=== PATIENT | female | born 1970 | race Caucasian/White ===

== ENCOUNTER 2018-05-31 15:04 | Inpatient (IN) ==
[2018-06-01] MEDS: Ibuprofen 600 MG Tablet PO PRN ×2 (09:14→13:56)
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
[2018-06-01] MEDS: Citalopram 20 MG Tablet PO SCH (13:55)
[2018-06-01] MEDS: traZODone 50 MG Tablet PO SCH (21:16)
[2018-06-02] MEDS: Citalopram 20 MG Tablet PO SCH (08:39)
[2018-06-02] MEDS: Ibuprofen 600 MG Tablet PO PRN ×3 (09:09→20:40)
--- NOTE | 2018-06-02 10:51 | P.CONPSY ---
Provisional Diagnosis Admission Date: May 31, 2018 18:09 [place] I.: 1. Adjustment disorder with depressed mood 2. Polysubstance abuse including opiates and alcohol [place] II.: Deferred History of Present Illness Service: Psychiatry Consult date: 06/02/18 Requesting Physician: Gaurav Jackson Reason for Consult: Second opinion for involuntary psychiatric hospitalization Primary Care Provider: UNKNOWN History of Present Illness: From Dr. Jackson's H&P: Patient is a 47-year-old white female comes here under Dykes act signed by the [facility]'s office dated 05/31/2019 at 1830 p.m. that document reviewed essentially states patient reports active SI without a plan states she recently became homeless and is severely depressed. Patient was initially seen screen at [facility]. Toxicology they are positive for marijuana. Patient transported here after being medically cleared at that facility patient seen on 2600 unit with nurse Lay. Patient is somewhat disheveled thin and slender female with a strong [place] accident. She is labile tearful anxious and somewhat entitled and demanding. Giving a somewhat convoluted history of being done here about 3 years from the [facility] appears his casts of their leading to her losing custody of her 2 late teens young adult children ostracizing herself from the rest of her family. Also being from her for a number of years. She came down here it appears she is at multiple unstable relationships and living situations with various men and women some of them met through her work some of them met through [employer]. Most recently patient in February went to the [facility] looking for somebody to help pay her rent and help with her she can get back into employment. This did not occur she was kicked out of that house wound up depressed was Dykes acted to a facility in [place] was there for 9 days. Discharged on Celexa trazodone and Vistaril. Somehow she made her way back here to the [facility] has been significantly homeless since then. She acknowledges frequent use of marijuana as much as she can afford. She acknowledges past use of multiple drugs including intravenous drug use related more to the relationship with her and children. She is vague about prior psychiatric hospitalizations. She denies voices or visions. But does acknowledge suicidal ideation hopelessness and helplessness. She has no income and she does not know what to do or where to go. It appears she has been to the [facility]. At this time patient does not meet criteria for further inpatient psychiatric stabilization by food she does meet Dykes criteria thus I will do first opinion request second opinion by food she does have capacity. We will restart her on her Celexa 20 mg daily trazodone 50 mg at bedtime we will use Atarax as a as needed. We will have counselor's talk with her related to possible placement issues. Patient says she has no options to return to [facility] to be closer to her family. On my examination today, 06/02: Patient seen and examined with nurse. Chart reviewed. Case discussed with nursing staff. I have explained the purpose of my evaluation today to the patient. On my examination today, the patient presents as tearful and dysphoric. She ruminates on her homeless living situation. She says that she has been feeling depressed for several months. She endorses suicidal ideation with plan to overdose on pills. She complains of mood instability and says that she is "scared of everything." She also reports anxiety, particularly when called upon to interact socially, such as when she has to make a phone call. She denies audiovisual hallucinations. I can elicit no delusional material. She does complain of a history of mood instability, but no clear manic or hypomanic episodes reported. Remainder of the psychiatric ROS is negative. No acute physical complaints. Past psychiatric history: The patient reports a history of depression and anxiety. She is not presently under the care of a psychiatrist. She says that she was Dykes acted in February of this year and may have been psychiatrically hospitalized in 2014. She does say that she has endeavored to harm herself in the past by a "doing drugs and drinking." Family history: The patient notes that her paternal grandmother was institutionalized at a psychiatric facility. No other reported family psychiatric history. Chemical dependency history: The patient admits to abuse of opiates and alcohol. She drinks about a 6 pack of beer a day. She denies any history of DTs or seizures. Social history: The patient reports that she has been homeless since December of this year. She is after 21 years of marriage. She has 2 children. She has a grade 9 education. She has previously worked at multiple jobs, most recently at a [employer]. Review of Systems All other systems reviewed negative except as stated in HPI [facility] - History History Provided By: Patient - Tobacco History Second Hand Smoke Exposure: Yes Tobacco Use In Past 30 Days: Yes Smoking Status: Current every day smoker Tobacco Type: Cigarettes - Alcohol History How Often Do You Have a Drink Containing Alcohol: Monthly or less - Substance Use History Substance History: Past History - Substance Use Type Alcohol Status: Active Route Used: By Mouth Frequency: Daily as much as she has Reason for Use: Calm Down, Feels Good Comment: Patient does not see substance use as a problem - Travel History Recent Travel in the USA Within the Last 8 Weeks: No Recent Travel Out of the Country Within the Last 8 Weeks: No Medications and Allergies Active Medications: Active Medications Al Hydrox/Mg Hydrox/Simethicone (Mag-Al Plus Susp Liq) 30 ml PO Q6H PRN PRN Reason: DYSPEPSIA Al Hydroxide/Mg Hydroxide (Milk Of Magnesia Liq) 30 ml PO DAILY PRN PRN Reason: CONSTIPATION Last Admin: 06/02/18 09:09 Dose: 30 ml Al Hydroxide/Mg Hydroxide (Milk Of Magnesia Liq) 30 ml PO Q12H PRN PRN Reason: Mild Constipation Citalopram Hydrobromide (Celexa) 20 mg PO DAILY [facility] Last Admin: 06/02/18 08:39 Dose: 20 mg Diphenhydramine HCl (Benadryl) 50 mg PO HS PRN PRN Reason: INSOMNIA Hydroxyzine HCl (Atarax) 50 mg PO Q6H PRN PRN Reason: ANXIETY Last Admin: 06/02/18 09:09 Dose: 50 mg Ibuprofen (Motrin) 600 mg PO Q6H PRN PRN Reason: PAIN SCALE 4-6 Last Admin: 06/02/18 09:09 Dose: 600 mg Nicotine (Habitrol 21 Mg Patch.24 Hr) 1 patch T-DERMAL DAILY [facility] Last Admin: 06/02/18 08:39 Dose: 1 patch Patch Removal (Remove Old Patch) 1 each T-DERMAL HS [facility] Last Admin: 06/01/18 21:14 Dose: 1 each Trazodone HCl (Desyrel) 50 mg PO HS [facility] Last Admin: 06/01/18 21:16 Dose: 50 mg Allergies Allergy/AdvReac Type Severity Reaction Status Date / Time codeine Allergy Unknown Constipatio Verified 05/31/18 21:31 n Exam Vital signs: Vital Signs 06/01/18 17:10 06/02/18 06:00 Temperature 98.5 F 97.8 F Pulse Rate 73 81 Respiratory Rate 18 16 Blood Pressure 153/85 H 124/87 Pulse Oximetry 99 Intake & Output 06/01/18 06/02/18 06/02/18 18:59 06:59 18:59 Intake Total 360 / 360 240 / 240 Balance 360 / 360 240 / 240 Intake: Oral 360 / 360 240 / 240 Other: Date of Last Bowel Movement 05/30/18 Narrative: Physical examination was completed by provider at outside hospital. On my examination today, the patient appears to be in no acute physical distress. No motor abnormalities noted. No signs of withdrawal noted. Mental Status Examination Appearance: Disheveled Consciousness: Alert Orientation: x4 Motor Activity: Normal gait Speech: Unremarkable Language: Adequate Fund of Knowledge: Adequate Attention and Concentration: Adequate Memory: Unremarkable (Grossly intact on clinical exam) Mood: Other (Depressed) Affect: Other (Tearful and dysphoric) Thought Process & Associations: Intact Thought Content: Appropriate Hallucination Type: None Delusion Type: None Suicidal Ideation: Yes Suicidal Plan: Yes Suicidal Intention: No (No reported urge to hurt self on inpatient unit) Homicidal Ideation: No Homicidal Plan: No Homicidal Intention: No Insight: Poor Judgment: Poor Assessment and Plan - Assessment (1) Adjustment disorder with depressed mood Code(s): F43.21 - Adjustment disorder with depressed mood Status: Acute (2) Polysubstance abuse Code(s): F19.10 - Other psychoactive substance abuse, uncomplicated Status: Acute - Plan Plan: Given the circumstances of the patient's presentation here and her presentation on my examination today, I concur with Dr. Jackson that the patient meets criteria for involuntary psychiatric hospitalization under the Dykes act. Main concern here is for risk of harm to self. I have completed the second opinion paperwork. Further care as per Dr. Jackson. Thank you very much for this consultation. Signing off. Justification for Continued Inpatient Stay: Per Dr. Jackson Request Healthcare Surrogate/Guardian Advocate?: No
--- NOTE | 2018-06-02 10:53 | P.TTN ---
- Patient Problems Problems: 1. Discharge planning 2. Medication compliance 3. Knowledge deficit 4. Lack of coping skills - Progress Toward Goals Provider Present: Dr. Jessa Jackson (Patient is depressed, Dr. Jackson will meet with patient to determine if patient needs to remain for further stabilization) Psychiatric Counselors Present: Shahid Crespo Jr., [facility] (Counselor will meet with patient and offer homeless resources, counselor will also offer usp in the [facility].) Group Spec/RT/OT/LOPEZ Present: J CARLOS Vargas (Patient attends select groups.) - Documentation Teaching Recipient: Patient
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
[2018-06-02] MEDS: traZODone 50 MG Tablet PO SCH (20:27)
[2018-06-02] MEDS: Aluminum/Magnesium/Simethacone Susp 30 ML UDC PO PRN (20:30)
[2018-06-03] MEDS: Ibuprofen 600 MG Tablet PO PRN ×3 (08:26→21:00)
[2018-06-03] MEDS: Citalopram 20 MG Tablet PO SCH (08:27)
--- NOTE | 2018-06-03 12:42 | P.PNPSY ---
Subjective Remarks: Patient seen today in her room with RN, chart reviewed, patient compliant medication. Patient continues somewhat irritable sad, somewhat manipulative describing multiple various somatic issues such as fibromyalgia and arthritis that appears to come and go. She continues to be willing to explore sober living facilities of counseling apply her with a list of them. She is vague about suicidality at this time. Though denies voices at this time. For now continue treatment no change Review of Systems All other systems reviewed negative except as stated in HPI Mental Status Examination Appearance: Appropriate Consciousness: Alert Orientation: x4 Motor Activity: Normal gait Speech: Unremarkable Language: Adequate Fund of Knowledge: Adequate Attention and Concentration: Adequate Memory: Unremarkable (Grossly intact on clinical exam) Mood: Angry, Sad, Irritable Affect: Other (Slight decreased range, increased intensity) Thought Process & Associations: Intact Thought Content: Appropriate Hallucination Type: None Delusion Type: None Suicidal Ideation: Yes Suicidal Plan: Yes Suicidal Intention: No (No reported urge to hurt self on inpatient unit) Homicidal Ideation: No Homicidal Plan: No Homicidal Intention: No Insight: Poor Judgment: Poor Assessment and Plan - Assessment (1) Adjustment disorder with depressed mood Code(s): F43.21 - Adjustment disorder with depressed mood Status: Acute (2) Polysubstance abuse Code(s): F19.10 - Other psychoactive substance abuse, uncomplicated Status: Acute - Plan Plan: Patient continues depressed vaguely suicidal, compliant medication, it appears much of this remains situational related to her lack of funding lack of entitlements, and homelessness. We will offer her a list of sober living facilities for her to explore Justification for Continued Inpatient Stay: At this time patient would decompensate a place to a lower level of care Discharge Planning: To be determined Request Healthcare Surrogate/Guardian Advocate?: No
[2018-06-03] MEDS: Aluminum/Magnesium/Simethacone Susp 30 ML UDC PO PRN (18:43)
[2018-06-03] MEDS: traZODone 50 MG Tablet PO SCH (20:56)
[2018-06-04] MEDS: Citalopram 20 MG Tablet PO SCH (10:10)
[2018-06-04] MEDS: Ibuprofen 600 MG Tablet PO PRN ×2 (10:11→16:47)
[2018-06-04] MEDS: Aluminum/Magnesium/Simethacone Susp 30 ML UDC PO PRN (10:51)
--- NOTE | 2018-06-04 12:59 | P.PNPSY ---
Subjective Remarks: Patient is seen today in her room with nurse Anais, chart reviewed, patient compliant medication. Patient is showing some mild increase in animation eye contact and affect. Though she is still showing some hopelessness but appears she is starting to consider alternatives including relocating back towards [place] to be near her children. She continues to complain of upset stomach with epigastric pain. We will start patient on Protonix 20 mg twice daily. Continue to work with counselor the possibility of patient relocating to [place] Review of Systems All other systems reviewed negative except as stated in HPI Mental Status Examination Appearance: Appropriate Consciousness: Alert Orientation: x4 Motor Activity: Normal gait Speech: Unremarkable Language: Adequate Fund of Knowledge: Adequate Attention and Concentration: Adequate Memory: Unremarkable (Grossly intact on clinical exam) Mood: Angry (Improved), Sad, Irritable Affect: Other (Today decreased range and intensity) Thought Process & Associations: Intact Thought Content: Appropriate Hallucination Type: None Delusion Type: None Suicidal Ideation: Yes (Today somewhat vague) Suicidal Plan: Yes (Today somewhat vague) Suicidal Intention: No (No reported urge to hurt self on inpatient unit) Homicidal Ideation: No Homicidal Plan: No Homicidal Intention: No Insight: Poor Judgment: Poor Assessment and Plan - Assessment (1) Adjustment disorder with depressed mood Code(s): F43.21 - Adjustment disorder with depressed mood Status: Acute (2) Polysubstance abuse Code(s): F19.10 - Other psychoactive substance abuse, uncomplicated Status: Acute - Plan Plan: Patient continues depressed and irritable with vague suicidality. Though her affect is somewhat softer and she is starting to explore alternatives Justification for Continued Inpatient Stay: At this time patient would decompensate a place to a lower level of care Discharge Planning: To be determined perhaps relocated to [place] to be near her children Request Healthcare Surrogate/Guardian Advocate?: No
[2018-06-04] MEDS: Pantoprazole Sodium 20 MG DR Tablet PO SCH ×2 (14:24→20:45)
[2018-06-04] MEDS: traZODone 50 MG Tablet PO SCH (20:45)
[2018-06-05] MEDS: Pantoprazole Sodium 20 MG DR Tablet PO SCH ×2 (08:51→20:50)
[2018-06-05] MEDS: Citalopram 20 MG Tablet PO SCH (08:51)
[2018-06-05] MEDS: Ibuprofen 600 MG Tablet PO PRN ×3 (08:56→21:03)
--- NOTE | 2018-06-05 12:08 | P.PNPSY ---
Subjective Remarks: Patient was seen and case discussed with nursing. Patient remained superficial and vague during the interview. She is complaining of suicidal thoughts but is laughing and jovial. Asking for hand brace and something for headache. Behaving well on the unit. Interacting with others. Compliant with medications Mental Status Examination Appearance: Appropriate Consciousness: Alert Orientation: x4 Motor Activity: Normal gait Speech: Unremarkable Language: Adequate Fund of Knowledge: Adequate Attention and Concentration: Adequate Memory: Unremarkable (Grossly intact on clinical exam) Mood: Angry (Improved), Sad, Irritable Affect: Other (Today decreased range and intensity) Thought Process & Associations: Intact Thought Content: Appropriate Hallucination Type: None Delusion Type: None Suicidal Ideation: Yes (Today somewhat vague) Suicidal Plan: Yes (Today somewhat vague) Suicidal Intention: No (No reported urge to hurt self on inpatient unit) Homicidal Ideation: No Homicidal Plan: No Homicidal Intention: No Insight: Poor Judgment: Poor Assessment and Plan - Assessment (1) Adjustment disorder with depressed mood Code(s): F43.21 - Adjustment disorder with depressed mood Status: Acute (2) Polysubstance abuse Code(s): F19.10 - Other psychoactive substance abuse, uncomplicated Status: Acute - Plan Plan: Continue current treatment plan Justification for Continued Inpatient Stay: Patient would decompensate in a less restrictive setting Request Healthcare Surrogate/Guardian Advocate?: No
[2018-06-05] MEDS: traZODone 50 MG Tablet PO SCH (20:50)
[2018-06-06] MEDS: Pantoprazole Sodium 20 MG DR Tablet PO SCH ×2 (08:39→20:44)
[2018-06-06] MEDS: Citalopram 20 MG Tablet PO SCH (08:39)
[2018-06-06] MEDS: Ibuprofen 600 MG Tablet PO PRN ×2 (08:39→21:31)
--- NOTE | 2018-06-06 12:49 | P.PNPSY ---
Subjective Remarks: Medical record reviewed and discussed with nursing staff. Patient in day room waiting television. Asking for a lidocaine patch for her back and brace for her wrist. She states that she does not want to live in [place] anymore. She has a sister in [place] that is carrying for her son but she is not welcome there. States that she is expecting the hospital to find her transportation back to [place] and a long term or living situation near where her sister lives. Denies any suicidal or homicidal ideations. Preoccupied on returning to [place]. Review of Systems All other systems reviewed negative except as stated in HPI Mental Status Examination Appearance: Appropriate Consciousness: Alert Orientation: x4 Motor Activity: Normal gait Speech: Unremarkable Language: Adequate Fund of Knowledge: Adequate Attention and Concentration: Adequate Memory: Unremarkable (Grossly intact on clinical exam) Mood: Angry, Sad, Irritable Affect: Flat Thought Process & Associations: Intact Thought Content: Appropriate Hallucination Type: None Delusion Type: None Suicidal Ideation: No Suicidal Plan: No Suicidal Intention: No Homicidal Ideation: No Homicidal Plan: No Homicidal Intention: No Insight: Adequate Judgment: Adequate Assessment and Plan - Assessment (1) Adjustment disorder with depressed mood Code(s): F43.21 - Adjustment disorder with depressed mood Status: Acute (2) Polysubstance abuse Code(s): F19.10 - Other psychoactive substance abuse, uncomplicated Status: Acute - Plan Plan: Continue current treatment plan Justification for Continued Inpatient Stay: Moving patient to a less restrictive environment may result in her decompensation. Request Healthcare Surrogate/Guardian Advocate?: No
[2018-06-06] MEDS: traZODone 50 MG Tablet PO SCH (20:44)
[2018-06-06] MEDS: Aluminum/Magnesium/Simethacone Susp 30 ML UDC PO PRN (21:31)
[2018-06-07] MEDS: Pantoprazole Sodium 20 MG DR Tablet PO SCH ×2 (08:38→20:42)
[2018-06-07] MEDS: Citalopram 20 MG Tablet PO SCH (08:38)
[2018-06-07] MEDS: Ibuprofen 600 MG Tablet PO PRN ×3 (08:46→21:37)
--- NOTE | 2018-06-07 09:47 | P.TTN ---
- Patient Problems Problems: 1. Discharge planning 2. Medication compliance 3. Knowledge deficit 4. Lack of coping skills - Progress Toward Goals Provider Present: Dr. Jessa Jackson (Patient is depressed, Dr. Jackson will meet with patient to determine if patient needs to remain for further stabilization. Dr. Jackson will meet with the patient to assess the need for further stabilization.) Psychiatric Counselors Present: Shahid Crespo Jr., [facility] (Counselor will meet with patient and offer homeless resources, counselor will also offer fdc in the [facility]. Counselor is arranging for a [employer] kit to [facility] to reunite with her son who will be at the [employer] bus station to receive the patient.) Group Spec/RT/OT/LOPEZ Present: J CARLOS Vargas (Patient attends select groups.), JOHN Gallardo (Patient attends select groups.) - Documentation Teaching Recipient: Patient
--- NOTE | 2018-06-07 13:10 | P.PNPSY ---
Subjective Remarks: Patient seen in her room with nurse Gin patient laying in bed calm cooperative reading or friction block. She is alert oriented calm cooperative excited about the pending plans for discharge and transportation to the [facility]. Amrik to help with bus transfer to that area where her son will pick her up and continue helping this lady find placement and services. If she is otherwise showing an increase in her mood denies suicidality homicidality voice or visions. She continues to have multiple vague complaints about aches and pains related to arthritis and fibromyalgia Review of Systems All other systems reviewed negative except as stated in HPI Mental Status Examination Appearance: Appropriate Consciousness: Alert Orientation: x4 Motor Activity: Normal gait Speech: Unremarkable Language: Adequate Fund of Knowledge: Adequate Attention and Concentration: Adequate Memory: Unremarkable (Grossly intact on clinical exam) Mood: Sad (Improved), Irritable (Decreased) Affect: Other (Slight decreased range and intensity) Thought Process & Associations: Intact Thought Content: Appropriate Hallucination Type: None Delusion Type: None Suicidal Ideation: No Suicidal Plan: No Suicidal Intention: No Homicidal Ideation: No Homicidal Plan: No Homicidal Intention: No Insight: Adequate Judgment: Adequate Assessment and Plan - Assessment (1) Adjustment disorder with depressed mood Code(s): F43.21 - Adjustment disorder with depressed mood Status: Acute (2) Polysubstance abuse Code(s): F19.10 - Other psychoactive substance abuse, uncomplicated Status: Acute - Plan Plan: Patient's mood is improving she does see some help with the discharge planning that is being set up for her return to the [facility] where her son will pick her up and she was staying with them or other family members with follow-up care in that area Justification for Continued Inpatient Stay: At this time patient would decompensate a place to a lower level of care Discharge Planning: Considering discharge this week plans can be finalized for her to be transported to [facility] to meet up with her son Request Healthcare Surrogate/Guardian Advocate?: No
[2018-06-07] MEDS: traZODone 50 MG Tablet PO SCH (20:42)
[2018-06-08 06:13] VITALS: BP 130/91; PULSE 79; RESP 18; TEMP 98; O2SAT 99
[2018-06-08] MEDS: Pantoprazole Sodium 20 MG DR Tablet PO SCH (08:14)
[2018-06-08] MEDS: Citalopram 20 MG Tablet PO SCH (08:14)
[2018-06-08] MEDS: Ibuprofen 600 MG Tablet PO PRN (08:17)
--- NOTE | 2018-06-08 08:52 | P.DSPSY ---
Psychiatry Discharge Summary Inpatient Psychiatric care?: Yes Advance Directives: No Mental Health Advance Directive: No Health Care Proxy: No - Admission Admission Date: May 31, 2018 18:09 - Admission Diagnosis (1) Marijuana abuse Code(s): F12.10 - Cannabis abuse, uncomplicated (2) Adjustment disorder with depressed mood Code(s): F43.21 - Adjustment disorder with depressed mood (3) Polysubstance abuse Code(s): F19.10 - Other psychoactive substance abuse, uncomplicated Brief History: Patient is a 47-year-old white female comes here under Dykes act signed by the [facility]'s office dated 05/31/2019 at 1830 p.m. that document reviewed essentially states patient reports active SI without a plan states she recently became homeless and is severely depressed. Patient was initially seen screen at [facility]. Toxicology they are positive for marijuana. Patient transported here after being medically cleared at that facility patient seen on 2600 unit with nurse Lay. Patient is somewhat disheveled thin and slender female with a strong [place] accident. She is labile tearful anxious and somewhat entitled and demanding. Giving a somewhat convoluted history of being done here about 3 years from the [facility] appears his casts of their leading to her losing custody of her 2 late teens young adult children ostracizing herself from the rest of her family. Also being from her for a number of years. She came down here it appears she is at multiple unstable relationships and living situations with various men and women some of them met through her work some of them met through Facebook. Most recently patient in February went to the [facility] looking for somebody to help pay her rent and help with her she can get back into employment. This did not occur she was kicked out of that house wound up depressed was Dykes acted to a facility in [place] was there for 9 days. Discharged on Celexa trazodone and Vistaril. Somehow she made her way back here to the [facility] has been significantly homeless since then. She acknowledges frequent use of marijuana as much as she can afford. She acknowledges past use of multiple drugs including intravenous drug use related more to the relationship with her and children. She is vague about prior psychiatric hospitalizations. She denies voices or visions. But does acknowledge suicidal ideation hopelessness and helplessness. She has no income and she does not know what to do or where to go. It appears she has been to the homeless coalition here in [facility]. At this time patient does not meet criteria for further inpatient psychiatric stabilization by food she does meet Dykes criteria thus I will do first opinion request second opinion by food she does have capacity. We will restart her on her Celexa 20 mg daily trazodone 50 mg at bedtime we will use Atarax as a as needed. We will have counselor's talk with her related to possible placement issues. Patient says she has no options to return to [facility] to be closer to her family. Tobacco Use In Past 30 Days: Yes How Often Do You Have a Drink Containing Alcohol: Monthly or less Hospital Course: Patient's hospital course was uneventful her initial hopelessness and helplessness with suicidality and was significant. There was concerned with her about her financial issues and her homelessness and no support group. However patient became compliant with medications shows some increased focus and appropriateness. She initiated contact with family in the [facility] area. She does wish to return to that area since she has no contacts and there is some significant stressors here in [place]. We have made arrangements with patient's son to pick her up of the bus station in [facility]. Patient today denies suicidality homicidality voices or visions. He is excited about quite pleased about returning to that area she is medical commitment to sobriety and finding a treatment program to address both her mental health issues and her addictions issues. Thus patient will be discharged today L faxed we will supply bus to get to [facility]. We will supply her with 4 lunch boxes to go to be given a 2-week supply of her medication and transported to the bus station - Discharge Discharge Date: 06/08/18 - Discharge Diagnosis (1) Marijuana abuse Diagnosis: Secondary Code(s): F12.10 - Cannabis abuse, uncomplicated Status: Acute (2) Adjustment disorder with depressed mood Diagnosis: Principal Code(s): F43.21 - Adjustment disorder with depressed mood Status: Acute (3) Polysubstance abuse Diagnosis: Secondary Code(s): F19.10 - Other psychoactive substance abuse, uncomplicated Status: Acute Discharge Disposition: Patient to relocate via bus to [facility] to be met by her son - Discharge Instructions Discharge Diet: Regular Diet Activities You Can Perform: Regular- No Restrictions - Discharge Time > 30 minutes Mental Status Examination Appearance: Appropriate Consciousness: Alert Orientation: x4 Motor Activity: Normal gait Speech: Unremarkable Language: Adequate Fund of Knowledge: Adequate Attention and Concentration: Adequate Memory: Unremarkable (Grossly intact on clinical exam) Mood: Sad (Improved), Irritable (Decreased) Affect: Other (Slight decreased range and intensity) Thought Process & Associations: Intact Thought Content: Appropriate Hallucination Type: None Delusion Type: None Suicidal Ideation: No Suicidal Plan: No Suicidal Intention: No Homicidal Ideation: No Homicidal Plan: No Homicidal Intention: No Insight: Adequate Judgment: Adequate Discharge/Advance Care Plan - Results Vital Signs: Last Vital Signs Temp 98 F 06/08/18 06:12 Pulse 79 06/08/18 06:12 Resp 18 06/08/18 06:12 BP 130/91 H 06/08/18 06:12 Pulse Ox 99 06/08/18 06:12 Lab Results: Urine toxicology positive at [facility] for marijuana Summary of Procedures: None done Pending Results: None - Medications Number of antipsychotic medications at discharge: 0 - Discharge Care Plan Goals to Promote Your Health: * To prevent worsening of your condition and complications * To maintain your health at the optimal level Directions to Meet Your Goals: Take your medications as prescribed Follow your dietary instruction Follow activity as directed Keep your appointments as scheduled Take your immunizations and boosters as scheduled If your symptoms worsen call your PCP, if no PCP go to Urgent Care Center or Emergency Room For 16/02 questions related to your inpatient stay or results of tests pending at discharge, please contact Dr. Gaurav Jackson MD at Smoking is Dangerous to Your Health. Avoid second hand smoking
== END 2018-06-08 12:30 | disposition home or self-care (01) ==
LOC: H260 18:09
PROVIDERS: ADMIT Psychiatry & Neurology Psychiatry; ATTEND Psychiatry & Neurology Psychiatry